=== PATIENT | female | born 1985 | race American Indian/Alaskan Native ===

== ENCOUNTER 2021-09-03 19:50 | Emergency (ER) | payer OTHER ==
[2021-09-03 20:03] VITALS: BP 148/92
--- NOTE | 2021-09-03 22:24 | Emergency Department Report ---
- General Chief Complaint: Upper Respiratory Infection Stated Complaint: FATIGUE/DIARRHEA Time Seen by Provider: 09/03/21 21:49 Source: patient Mode of arrival: Ambulatory Limitations: No Limitations - History of Present Illness Initial Comments: Chief complaint: Exposed to Covid I need note for PTO HPI: 5-year-old female with no significant past medical history presents with fa tigue cough diarrhea for 3 days. Her daughter has similar symptoms. Relative recently diagnosed with Covid . Patient has mild symptoms. She had mild shortness of breath which resolved spontaneously. Her Covid test results are pending. MD Complaint: cough, other (Fatigue body aches shortness of breath diarrhea) -: Gradual, days(s) (3 days) Severity: mild Consistency: intermittent Improves With: nothing Worsens With: nothing Context: sick contacts (Daughter with similar symptoms, relative with known Covid) - Related Data Allergies Allergy/AdvReac Type Severity Reaction Status Date / Time No Known Allergies Allergy Unverified 09/03/21 20:05 ED Review of Systems ROS: Stated complaint: FATIGUE/DIARRHEA Other details as noted in HPI Comment: All other systems reviewed and negative Constitutional: malaise ENT: denies: throat pain Respiratory: cough, shortness of breath Gastrointestinal: diarrhea ED Past Medical Hx - Past Medical History Previous Medical History?: No - Surgical History Past Surgical History?: No ED Physical Exam - General Limitations: No Limitations General appearance: alert, in no apparent distress, other (Appears well appears healthy appears comfortable) - Head Head exam: Present: atraumatic, normocephalic - Eye Eye exam: Present: normal appearance - ENT ENT exam: Present: mucous membranes moist - Neck Neck exam: Present: normal inspection, full ROM - Respiratory Respiratory exam: Present: normal lung sounds bilaterally. Absent: respiratory distress, wheezes, rales, rhonchi, chest wall tenderness, accessory muscle use, decreased breath sounds, prolonged expiratory - Cardiovascular Cardiovascular Exam: Present: regular rate, normal rhythm, normal heart sounds. Absent: systolic murmur, diastolic murmur, rubs, gallop - GI/Abdominal GI/Abdominal exam: Present: soft, normal bowel sounds. Absent: distended, tenderness, guarding, rebound - Extremities Exam Extremities exam: Present: normal inspection - Back Exam Back exam: Present: normal inspection - Neurological Exam Neurological exam: Present: alert, oriented X3 - Psychiatric Psychiatric exam: Present: normal affect, normal mood - Skin Skin exam: Present: warm, dry, intact, normal color. Absent: rash ED Course Vital Signs 09/03/21 19:59 Temperature 98.9 F Pulse Rate 106 H Respiratory 16 Rate Blood Pressure 148/92 [Left] O2 Sat by Pulse 97 Oximetry ED Medical Decision Making - Medical Decision Making Suspected Covid infection, supportive care instructions provided. Critical care attestation.: If time is entered above; I have spent that time in minutes in the direct care of this critically ill patient, excluding procedure time. ED Disposition Clinical Impression: Suspected COVID-19 virus infection Disposition: HOME / SELF CARE / HOMELESS Is pt being admited?: No Does the pt Need Aspirin: No Condition: Stable Instructions: COVID-19 Frequently Asked Questions Referrals: ZACH BALES MD [Staff Physician] - 3-5 Days Forms: Work/School Release Form(ED)
== END 2021-09-03 22:40 | disposition home or self-care (01) ==
LOC: ED 19:50
DX: Z20.822 Contact with and (suspected) exposure to COVID-19 (principal)
CPT/HCPCS: 99282